=== PATIENT | female | born 1955 | race Caucasian/White ===

== ENCOUNTER → 2019-01-23 10:03 | Outpatient (CLI) | payer OTHER, MEDICARE, SELFPAY ==
[2019-01-23 10:51] LABS: Source, Body Fld. Peritoneal Fluid
[2019-01-23 10:52] LABS: Appearance,Body Fld. Cloudy
[2019-01-23 10:53] LABS: RBC,Body Fluid 11 cells/uL (< 10 X 10^3); TNC,Body Fluid 519 cells/uL (< 1000); Volume,Body Fld. 53 mL
[2019-01-23 11:36] LABS: Mononuclear WBCs,Body Fluid 87 %; Polynuclear WBC,Body Fluid 13 %
== END ==
PROVIDERS: Visit Provider Emergency Medicine
DX: K70.31 Alcoholic cirrhosis of liver with ascites (principal)
CPT/HCPCS: 87070; 87205; 89051

== ENCOUNTER 2019-02-22 00:37 | Inpatient (IN) ==
[2019-02-22 01:29] LABS: Basophils % 0.2 % (0.1-2.0); Eosinophils # 0.1 K/mm3 (0.0-0.4); Eosinophils % 0.6 % (0.1-12.0); Hemoglobin 8.4 g/dL (12.2-16.2); Lymphocytes # 0.8 K/mm3 (0.7-4.5); Lymphocytes % 4.9 % (10-50); Mean Corpuscular Volume 86.5 fl (81-99); Mean Platelet Volume 9.2 fl (7.4-10.4); Monocytes # 0.6 K/mm3 (0.1-1.0); Monocytes % 3.8 % (1.7-9.3); Neutrophils # 14.2 K/mm3 (1.8-7.8); Neutrophils % 90.5 % (37.0-80.0); Platelet Count 235 K/mm3 (142-424); Red Blood Count 3.05 M/mm3 (4.20-5.40); Red Cell Distribution Width 19.7 % (11.5-17.5); White Blood Count 15.7 K/mm3 (4.8-10.8)
[2019-02-22 01:30] LABS: Microscopic, Urine URINE MICROSCOPIC (MICROSCOPIC)
[2019-02-22 01:31] LABS: Appearance,Urine SL CLOUDY (Clear); Bilirubin,Urine Negative (Negative); Blood, Urine Negative (Negative); Color,Urine DK YELLOW (Yellow); Glucose,Urine (UA) Negative (Negative); Ketones,Urine Negative (Negative); Leukocyte Esterase,Urine TRACE (Negative); PH,Urine 6.5 (5.0-8.5); Protein,Urine Negative (Negative); Urobilinogen,Urine 0.2 EU/dl (0.2)
[2019-02-22 01:32] LABS: Hematocrit 26.4 % (37.0-47.0)
[2019-02-22 01:39] LABS: Amorphous Sediment,Urine 2+ /lpf; Mucus,Urine 4+ /lpf
[2019-02-22 01:49] LABS: Alanine Aminotransferase 16 U/L (12-78); Albumin Level 2.2 gm/dL (3.4-5.0); Albumin/Globulin Ratio 0.4 (1.1-1.8); Alkaline Phosphatase 87 U/L (46-116); Amylase 30 U/L (25-115); Bilirubin,Total 2.5 mg/dL (0.2-1.0); Carbon Dioxide 33 mmol/L (21.0-32.0); Total Protein,Serum 7.2 gm/dL (6.4-8.2)
[2019-02-22 01:50] LABS: Anisocytosis 2+; Lymphocytes % 4 % (10-50); Monocytes % 5 % (2-9); Neutrophils % 79 % (42-76); Total Cells Counted 100
[2019-02-22 01:51] LABS: Rouleaux 3+
[2019-02-22 02:12] LABS: Anion Gap 10.5 mEq/L (5-15); Aspartate Amino Transferase 55 U/L (15-37); Calcium 7.7 mg/dL (8.5-10.1); Chloride 93 mmol/L (98-107); Glucose 98 mg/dL (74-106); Sodium 133 mmol/L (136-145)
[2019-02-22 02:15] LABS: Blood Urea Nitrogen 94 mg/dL (7-18); C-Reactive Protein 21.3 mg/dL (0.0-0.9)
--- NOTE | 2019-02-22 03:17 | Emergency Department Note ---
ED Disposition Clinical Impression: Severe sepsis, Septic shock, Elevated erythrocyte sedimentation rate, Hepatic encephalopathy, RBBB (right bundle branch block with left anterior fascicular block), Renal insufficiency, Hypokalemia Altered mental status Qualifiers: Altered mental status type: unspecified Qualified Code(s): R41.82 - Altered mental status, unspecified Cirrhosis Qualifiers: Hepatic cirrhosis type: unspecified hepatic cirrhosis Ascites presence: without ascites Qualified Code(s): K74.60 - Unspecified cirrhosis of liver Anemia Qualifiers: Anemia type: unspecified type Qualified Code(s): D64.9 - Anemia, unspecified Disposition: Admitted As Inpatient Condition on Discharge: Serious - Critical Care Critical Care Time: Yes Attestation: On 02/22/19, the high probability of a clinically significant, sudden or life threatening deterioration of the following system(s) required my full and direct attention, intervention and personal management. The time I documented below is in addition to time spent performing reported procedures but includes the follo wing listed in this critical care notation. Total Critical Care Time: 90 Vital system(s) involved:: Metabolic Failure, Renal Failure My critical care processes included: Assessment & monitoring of V/S, Initial and Re-exams, Coordinating Care, Medication Orders and management, Documentation Medical Decision Making - Medical Records Medical records reviewed: Yes: I reviewed the patient's medical records. - Bryant Inquiry Pt receiving controlled substance: No Vital Signs: 02/22/19 00:39 02/22/19 00:48 02/22/19 01:07 Temperature 99.8 F H Temperature Source Rectal Pulse Rate [Right Brachial] 108 H 104 H 102 H Respiratory Rate 12 14 13 Blood Pressure [Right Arm] 91/47 L 89/42 L 91/42 L Blood Pressure Mean [Right Arm] 61 57 58 Blood Pressure Source [Right Arm] Automatic Cuff Blood Pressure Position [Right Arm] Supine 02 Sat by Pulse Oximetry 93 L 93 L 93 L Oxygen Delivery Method Room Air Room Air Oxygen Flow Rate (LPM) 02/22/19 01:44 02/22/19 01:59 02/22/19 02:30 Temperature Temperature Source Pulse Rate [Right Brachial] 107 H 104 H 115 H Respiratory Rate 13 13 13 Blood Pressure [Right Arm] 79/45 L 85/45 L 83/37 L Blood Pressure Mean [Right Arm] 56 58 52 Blood Pressure Source [Right Arm] Blood Pressure Position [Right Arm] 02 Sat by Pulse Oximetry 93 L 91 L 93 L Oxygen Delivery Method Room Air Room Air Room Air Oxygen Flow Rate (LPM) 02/22/19 03:00 02/22/19 03:30 02/22/19 03:55 Temperature 98.5 F Temperature Source Rectal Pulse Rate [Right Brachial] 101 H 103 H 104 H Respiratory Rate 13 15 14 Blood Pressure [Right Arm] 91/44 L 80/47 L 129/64 Blood Pressure Mean [Right Arm] 59 58 85 Blood Pressure Source [Right Arm] Blood Pressure Position [Right Arm] 02 Sat by Pulse Oximetry 95 95 95 Oxygen Delivery Method Room Air Room Air Room Air Oxygen Flow Rate (LPM) 02/22/19 04:18 02/22/19 04:30 02/22/19 05:00 Temperature 98.5 F Temperature Source Rectal Pulse Rate [Right Brachial] 102 H 101 H 109 H Respiratory Rate 15 15 15 Blood Pressure [Right Arm] 106/62 L 94/54 L 97/53 L Blood Pressure Mean [Right Arm] 76 67 67 Blood Pressure Source [Right Arm] Manual Cuff/ Auscultation Blood Pressure Position [Right Arm] Supine 02 Sat by Pulse Oximetry 95 92 L 93 L Oxygen Delivery Method Room Air Room Air Nasal Cannula Oxygen Flow Rate (LPM) 02/22/19 05:30 Temperature Temperature Source Pulse Rate [Right Brachial] 101 H Respiratory Rate 15 Blood Pressure [Right Arm] 89/58 L Blood Pressure Mean [Right Arm] 68 Blood Pressure Source [Right Arm] Automatic Cuff Blood Pressure Position [Right Arm] Supine 02 Sat by Pulse Oximetry 99 Oxygen Delivery Method Nasal Cannula Oxygen Flow Rate (LPM) 2 - Lab Data Lab results reviewed: Yes: I reviewed the patient's lab results. Lab Results 02/22/19 00:46: Urine Color Dk yellow, Urine Appearance Sl cloudy, Urine pH 6.5, Ur Specific [place] 1.010, Urine Protein Negative, Urine Glucose (UA) Negative, Urine Ketones Negative, Urine Blood Negative, Urine Nitrate Negative, Urine Stuart irubin Negative, Urine Urobilinogen 0.2, Ur Leukocyte Esterase Trace, Urine WBC 3-5, Amorphous Sediment 2+, Urine Mucus 4+ 02/22/19 00:54: POC Glucose 114 H 02/22/19 01:15: WBC 15.7 H, RBC 3.05 L, Hgb 8.4 L, Hct 26.4 L, MCV 86.5, MCH 27.7, MCHC 32.0, RDW 19.7 H, Plt Count 235, MPV 9.2, Neut % (Auto) 90.5 H, Lymph % (Auto) 4.9 L, [place] % (Auto) 3.8, Eos % (Auto) 0.6, Baso % (Auto) 0.2, Neut # (Auto) 14.2 H, Lymph # (Auto) 0.8, [place] # (Auto) 0.6, Eos # (Auto) 0.1, Baso # (Auto) 0.0, Total Counted 100, Neutrophils % (Manual) 79 H, Band Neutrophils % 12.0 H, Lymphocytes % (Manual) 4 L, Monocytes % (Manual) 5, Platelet Estimate Normal, RBC Morphology Not Reportable, Poikilocytosis 2+, Anisocytosis 2+, Rouleaux 3+ 02/22/19 01:15: ESR 94 H 02/22/19 01:15: Lactate 2.0 02/22/19 01:53: Sodium 133 L, Potassium 3.5, Chloride 93 L, Carbon Dioxide 33 H, Anion Gap 10.5, BUN 94 H, Creatinine 2.55 H, Estimated Creat Clear 20, Estimated GFR 19 L*, Est GFR ( Amer) 23 L, Glucose 98, Calcium 7.7 L, Total Bilirubin 2.5 H, AST 55 H, ALT 16, Alkaline Phosphatase 87, Troponin I < 0.02, C-Reactive Protein 21.3 H, Total Protein 7.2, Albumin 2.2 L, Globulin 5.0 H, A lbumin/Globulin Ratio 0.4 L, Amylase 30, Lipase 82 02/22/19 01:53: Stool Occult Blood Positive A 02/22/19 03:35: PT 13.9 H, INR 1.36 H 02/22/19 03:35: Ammonia 87 H 02/22/19 03:35: Magnesium 2.0 02/22/19 03:35: Sodium 135 L, Potassium 2.8 L*, Chloride 95 L, Carbon Dioxide 29, Anion Gap 13.8, BUN 89 H, Creatinine 2.58 H, Estimated Creat Clear 19, Estimated GFR 19 L*, Est GFR ( Amer) 23 L, Glucose 95, Calcium 7.2 L 02/22/19 05:25: Lactate 1.2 Result diagrams: 02/22/19 01:15 02/22/19 03:35 Orders (Tests/Meds): ED MEDICATIONS Generic Name Dose Route Start Last Admin Trade Name Pankaj PRN Reason Stop Dose Admin Sodium Chloride 1,000 mls @ 999 mls/hr 02/22/19 01:00 02/22/19 04:59 Sod Chlor 0.9% 1000ml Bag IV 02/22/19 02:00 999 mls/hr .Q1H1M JAZMYNE Administration Ceftriaxone Sodium 1 gm/ 50 mls @ 100 mls/hr 02/22/19 02:50 02/22/19 02:50 Sodium Chloride IV 03/08/19 02:49 100 mls/hr Q24H JAZMYNE Administration Protocol Sodium Chloride 500 mls @ 999 mls/hr 02/22/19 04:30 02/22/19 04:34 Sod Chlor 0.9% 1000ml Bag IV 02/22/19 05:00 Not Given .Q31M JAZMYNE Ertapenem 0.5 gm/ Sodium 50 mls @ 100 mls/hr 02/22/19 04:45 02/22/19 04:52 Chloride IV 03/08/19 04:44 100 mls/hr Q24H JAZMYNE Administration Protocol Sodium Chloride 1,000 mls @ 999 mls/hr 02/22/19 05:00 Sod Chlor 0.9% 1000ml Bag IV 02/22/19 06:00 .Q1H1M JAZMYNE Discontinued Medications Generic Name Dose Route Start Last Admin Trade Name Pankaj PRN Reason Stop Dose Admin Sodium Chloride 1,630 mls @ 815 mls/hr 02/22/19 02:17 02/22/19 01:51 Sod Chlor 0.9% 1000ml Bag 30 ml/kg infuse over 2 hr (1630 ml) 02/22/19 04:16 815 mls/hr IV Administration .Q2H ONE Metronidazole 500 mg in 100 mls @ 100 mls/hr 02/22/19 04:55 02/22/19 05:26 Flagyl 500mg/100ml Ivpb IV 02/22/19 05:54 100 mls/hr ONCE ONE Administration Protocol Lactulose 20 gm 02/22/19 04:58 02/22/19 05:26 Chronulac 20gm/30ml Udc RC 02/22/19 04:59 20 gm ONCE ONE Administration ORDERS Category Date Time Status CT abdomen pelvis wo con Stat Cat Scan 02/22/19 00:[address] head/brain wo con Stat Cat Scan 02/22/19 00:48 Taken XR chest portable Stat Exams 02/22/19 00:45 Taken Urinalysis and Microscopic Stat Lab 02/22/19 00:46 Ordered Blood Culture Stat Micro 02/22/19 00:46 Ordered ECG Request by /Saul Stat Y 02/22/19 00:45 Ordered - Radiology Data #1 Image(s): Chest Image Reviewed: Yes I reviewed the patient's radiology image Preliminary Findings: Abnormal (possible inflitrate ) - CT Data CT Scan: Head, Abdomen, Pelvis Time Received: 04:[address] Reviewed: Yes: I have viewed the radiologist's interpretation Preliminary Findings: Abnormal (see report ) - ECG Data Tracing #1 Arrhythmias present: other Conduction abnormalities present: LAFB, RBBB - Tissue Perfus/Sepsis Re-Eval Reperfusion Exam Performed: Yes Date Performed: 02/22/19 Time Performed: 03:17 Sepsis Follow-Up: Yes: Respiratory exam, Cardiovascular exam, Capillary refill, Peripheral pulse strength, Peripheral pulse location, Vital Signs Altered Mental Status HPI - General Chief Complaint: Altered Mental Status Stated Complaint: ams Time Seen by Provider: 02/22/19 00:50 Mode of Arrival: EMS Source of Information: Patient, Relative, EMS, Medical Record Limitations: confused; unable to answer questions appropriately Description of Symptoms (Recalled from ER Triage Doc. by RN): Pt sent from group home for reports of foul smelling stool that "looked bloody". EMS reported that patient was vague about complaints, stated that she hurt all over. On arrival, pt does not answer quesitons appropriately. Responds to her first name, but states she doesn't know her name. Pt appears very drowsy. - History of Present Illness HPI narrative: pt sent from [facility] with hx of altered mental status - had bloody stool- hx of hospice care - has liver disease with hep c - has hx of endocarditis with prosthetic heart valve , cirrhosis, copd - pt was last admitted in september at [facility] - she has been at [facility] for a couple of months - she has vacillated between dnr and full code- MD complaint: altered mental status Onset (ago): hour(s) Timing confirmed by: family member, caregiver Severity: severe Consistency of symptoms: waxing and waning Associated symptoms: denies other symptoms - Related Data Home Medications Medication Instructions Recorded Confirmed Acetaminophen 500 mg PO Q6H PRN 02/22/19 02/22/19 Baclofen [Lioresal 10mg tablet] 10 mg PO BID 02/22/19 02/22/19 Bumetanide 2 mg PO BID 02/22/19 02/22/19 Chlorthalidone 50 mg PO DAILY 02/22/19 02/22/19 Ipratropium/Albuterol Sulfate 3 ml IH Q6H 02/22/19 02/22/19 [Iprat-Albut 0.5-3(2.5) mg/3 ml] Lactulose [Lactulose 10gm/15ml 10 gm PO DAILY 02/22/19 02/22/19 Oral Soln] Magnesium Oxide 400 mg PO DAILY 02/22/19 02/22/19 Mirtazapine [Remeron 15mg tablet] 15 mg PO HS 02/22/19 02/22/19 Morphine Sulfate [MS Contin 30mg 30 mg PO HS 02/22/19 02/22/19 EXTENDED RELEASE tablet] Morphine Sulfate [Roxanol 20mg/mL 5 mg PO Q3H PRN 02/22/19 02/22/19 1mL oral soln UDC] Nitroglycerin [Nitrostat 0.4mg SL 0.4 mg SL Q15M 02/22/19 02/22/19 Tablet] Potassium Chloride 40 meq PO DAILY 02/22/19 02/22/19 Promethazine HCl [Phenergan 25mg 25 mg PO Q6H PRN 02/22/19 02/22/19 tab] guaiFENesin [Robafen] 10 ml PO Q8H 02/22/19 02/22/19 Allergies Allergy/AdvReac Type Severity Reaction Status Date / Time No Known Allergies Allergy Unverified 01/13/19 15:12 [facility] History - Hepatitis A Screen Drug use history?: Yes High risk sexual behaviors?: No History of sexually transmitted infection?: No Currently employed?: No Childcare worker?: No Do you have indoor plumbing?: Yes Do you have electricity?: Yes Attestation statement:: This patient has been screened for Hepatitis A risk factors. I have reviewed the patient's past medical history: Yes Medical History: Denies:: Diabetes Mellitus Type 1, Diabetes Mellitus Type 2 - Social History Smoking Status: Former smoker # Packs/Day (cigarettes): 0 Alcohol Intake: former Substance Use Type: unknown Occupational Status: disabled Housing: group home ROS Obtained: Yes unobtainable due to mental status Physical Exam - General General appearance: in no apparent distress, cachectic - Head Head exam: normocephalic - Eye Eye exam: Present: PERRL, EOMI - ENT ENT exam: Present: mucous membranes dry - Neck Neck exam: Present: trachea midline - Respiratory Respiratory exam: Present: other (dec bs ). Absent: respiratory distress - Cardiovascular Cardiovascular exam: Present: regular rate, systolic murmur, +S4 - Abdominal Exam Abdominal exam: Present: soft, tenderness - Extremities Exam Extremities exam: Present: other (bilat swelling ) - Neurological Exam Neurological exam: Present: other (confused w/o posturing ) - Skin Skin exam: Absent: rash
[2019-02-22 03:51] LABS: INR 1.36 (0.9-1.1); Prothrombin Time 13.9 seconds (9.4-11.8)
[2019-02-22 05:14] LABS: Anion Gap 13.8 mEq/L (5-15); Calcium 7.2 mg/dL (8.5-10.1)
--- NOTE | 2019-02-22 08:22 | History & Physical Report ---
*Admission Date: 02/22/19 *Chief complaint: altered mental staus *History of present illness: this wf was sent from [facility] with altered mental status -pt has sig hx of cirrhosis and hep c and she has renal failure - no reported fever but did have sepsis criteria with organ dysfunction - [facility] of foul smelling stool that "looked bloody". EMS reported that patient was vague about complaints, stated that she hurt all over. On arrival, pt does not answer quesitons appropriately. Responds to her first name, but states she doesn't know her name. pt sent from [facility] with hx of altered mental status - had bloody stool- hx of hospice care - has liver disease with hep c - has hx of endocarditis with prosthetic heart valve , cirrhosis, copd - pt was last admitted in september at [facility] - she has been at [facility] for a couple of months - she has vacillated between dnr and full code- pt was admitted for ivf and abx - she is a hospice pt [facility] History I have reviewed the patient's past medical history: Yes Medical History: Reports:: Congestive Heart Failure, Hypertension Denies:: Diabetes Mellitus Type 1, Diabetes Mellitus Type 2 *Have you ever received a pneumonia vaccine?: Yes *Have you received a flu vaccine this season?: Yes Other Surgeries: Yes: Other Valve Replacement - *Social History Smoking Status: Former smoker # Packs/Day (cigarettes): 0 Alcohol Intake: former Substance Use Type: unknown *Occupational Status:: disabled Housing: prison *Travel in the last 8 weeks: None Family Hx:: Unable to obtain Review of Systems - Review of Systems Review of systems:: pertinent systems reviewed and negative unless documented below - Constitutional Denies fever(s) - Eyes Denies change in vision - ENT Denies neck pain, Denies sore throat - *Cardiovascular Denies chest pain at rest - *Respiratory Denies cough - *Gastrointestinal Reports abdominal pain, Reports other (brown stool with positive hemocult ) - *Genitourinary Denies blood in urine - *Musculoskeletal Reports back pain, Denies joint pain - Integumentary/Breasts Reports other (has skin changes to sacrum ) - *Neurologic Denies headache(s), Denies seizure-like activity - Psychiatric Reports confusion Meds Home Medications Medication Instructions Recorded Confirmed Type Acetaminophen 500 mg PO Q6H PRN 02/22/19 02/22/19 History Baclofen [Lioresal 10mg tablet] 10 mg PO BID 02/22/19 02/22/19 History Bumetanide 2 mg PO BID 02/22/19 02/22/19 History Chlorthalidone 50 mg PO DAILY 02/22/19 02/22/19 History Ipratropium/Albuterol Sulfate 3 ml IH Q6H 02/22/19 02/22/19 History [Iprat-Albut 0.5-3(2.5) mg/3 ml] Lactulose [Lactulose 10gm/15ml 10 gm PO DAILY 02/22/19 02/22/19 History Oral Soln] Magnesium Oxide 400 mg PO DAILY 02/22/19 02/22/19 History Mirtazapine [Remeron 15mg tablet] 15 mg PO HS 02/22/19 02/22/19 History Morphine Sulfate [MS Contin 30mg 30 mg PO HS 02/22/19 02/22/19 History EXTENDED RELEASE tablet] Morphine Sulfate [Roxanol 20mg/mL 5 mg PO Q3H PRN 02/22/19 02/22/19 History 1mL oral soln UDC] Nitroglycerin [Nitrostat 0.4mg SL 0.4 mg SL Q15M 02/22/19 02/22/19 History Tablet] Potassium Chloride 40 meq PO DAILY 02/22/19 02/22/19 History Promethazine HCl [Phenergan 25mg 25 mg PO Q6H PRN 02/22/19 02/22/19 History tab] guaiFENesin [Robafen] 10 ml PO Q8H 02/22/19 02/22/19 History Allergies Allergy/AdvReac Type Severity Reaction Status Date / Time No Known Allergies Allergy Unverified 01/13/19 15:12 Exam Vital signs and Labs for Last 24 Hours: Temp Pulse Resp BP Pulse Ox 99.1 F 99 H 24 96/52 L 91 L 02/22/19 07:09 02/22/19 07:09 02/22/19 07:09 02/22/19 07:39 02/22/19 07:09 Laboratory Results - last 24 hr 02/22/19 00:46: Urine Color Dk yellow, Urine Appearance Sl cloudy, Urine pH 6.5, Ur Specific [place] 1.010, Urine Protein Negative, Urine Glucose (UA) Negative, Urine Ketones Negative, Urine Blood Negative, Urine Nitrate Negative, Urine Bilirubin Negative, Urine Urobilinogen 0.2, Ur Leukocyte Esterase Trace, Urine WBC 3-5, Amorphous Sediment 2+, Urine Mucus 4+ 02/22/19 00:54: POC Glucose 114 H 02/22/19 01:15: WBC 15.7 H, RBC 3.05 L, Hgb 8.4 L, Hct 26.4 L, MCV 86.5, MCH 27.7, MCHC 32.0, RDW 19.7 H, Plt Count 235, MPV 9.2, Neut % (Auto) 90.5 H, Lymph % (Auto) 4.9 L, [place] % (Auto) 3.8, Eos % (Auto) 0.6, Baso % (Auto) 0.2, Neut # (Auto) 14.2 H, Lymph # (Auto) 0.8, [place] # (Auto) 0.6, Eos # (Auto) 0.1, Baso # (Auto) 0.0, Total Counted 100, Neutrophils % (Manual) 79 H, Band Neutrophils % 12.0 H, Lymphocytes % (Manual) 4 L, Monocytes % (Manual) 5, Platelet Estimate Normal, RBC Morphology Not Reportable, Poikilocytosis 2+, Anisocytosis 2+, Rouleaux 3+ 02/22/19 01:15: ESR 94 H 02/22/19 01:15: Lactate 2.0 02/22/19 01:53: Sodium 133 L, Potassium 3.5, Chloride 93 L, Carbon Dioxide 33 H, Anion Gap 10.5, BUN 94 H, Creatinine 2.55 H, Estimated Creat Clear 20, Estimated GFR 19 L*, Est GFR ( Amer) 23 L, Glucose 98, Calcium 7.7 L, Total Bilirubin 2.5 H, AST 55 H, ALT 16, Alkaline Phosphatase 87, Troponin I < 0.02, C-Reactive Protein 21.3 H, Total Protein 7.2, Albumin 2.2 L, Globulin 5.0 H, Albumin/Globulin Ratio 0.4 L, Amylase 30, Lipase 82 02/22/19 01:53: Stool Occult Blood Positive A 02/22/19 03:35: PT 13.9 H, INR 1.36 H 02/22/19 03:35: Ammonia 87 H 11/10/19 03:35: Magnesium 2.0 02/22/19 03:35: Sodium 135 L, Potassium 2.8 L*, Chloride 95 L, Carbon Dioxide 29, Anion Gap 13.8, BUN 89 H, Creatinine 2.58 H, Estimated Creat Clear 19, Estimated GFR 19 L*, Est GFR ( Amer) 23 L, Glucose 95, Calcium 7.2 L 02/22/19 05:25: Lactate 1.2 I & O for Last 24 hours: Intake & Output 02/19/19 02/20/19 02/21/19 02/22/19 11:59 11:59 11:59 11:59 Intake Total 3450 / 3450 Output Total 1800 / 1800 Balance 1650 / 1650 Weight 131 lb 1 oz - Constitutional no acute distress, chronically ill appearing - *Routine HEENT Exam Head: Present: normocephalic Eye: Present: EOMI, PERRL, conjunctival icterus ENT: Present: mucous membranes dry - *Routine Neck Exam Absent: JVD, meningismus - *Routine Respiratory Exam Present: decreased breath sounds - *Routine Cardiovascular Exam Present: RRR, murmur, S4. Absent: rubs - *Routine Abdominal Exam Present: soft, tenderness. Absent: distended, rebound, guarding, firm - *Routine Extremities Exam Present: edema - *Routine Skin Exam Absent: petechiae - *Routine Neurological Exam Present: alert, CN II-XII intact. Absent: asterixis - Routine Psychiatric Exam Present: unable to assess Assessment and Plan (1) Altered mental status Current visit: Yes Status: Acute Qualifiers: Altered mental status type: delirium Qualified Code(s): R41.0 - Disorientation, unspecified Category: Medical Code(s): R41.82 - Altered mental status, unspecified (2) Anemia Current visit: Yes Status: Acute Qualifiers: Anemia type: unspecified type Qualified Code(s): D64.9 - Anemia, unspecified Category: Medical Code(s): D64.9 - Anemia, unspecified (3) Cirrhosis Current visit: Yes Status: Acute Qualifiers: Hepatic cirrhosis type: unspecified hepatic cirrhosis Ascites presence: without ascites Qualified Code(s): K74.60 - Unspecified cirrhosis of liver Category: Medical Code(s): K74.60 - Unspecified cirrhosis of liver (4) Elevated erythrocyte sedimentation rate Current visit: Yes Status: Acute Category: Medical Code(s): R70.0 - Elevated erythrocyte sedimentation rate (5) Hepatic encephalopathy Current visit: Yes Status: Acute Category: Medical Code(s): K72.90 - Hepatic failure, unspecified without coma (6) Hypokalemia Current visit: Yes Status: Acute Category: Medical Code(s): E87.6 - Hypokalemia (7) RBBB (right bundle branch block with left anterior fascicular block) Current visit: Yes Status: Acute Category: Medical Code(s): I45.2 - Bifa scicular block (8) Renal insufficiency Current visit: Yes Status: Acute Category: Medical Code(s): N28.9 - Disorder of kidney and ureter, unspecified (9) Septic shock Current visit: Yes Status: Acute Category: Medical Code(s): A41.9 - Sepsis, unspecified organism; R65.21 - Severe sepsis with septic shock (10) Severe sepsis Current visit: Yes Status: Acute Category: Medical Code(s): A41.9 - Sepsis, unspecified organism; R65.20 - Severe sepsis without septic shock
--- NOTE | 2019-02-22 08:35 | Pharmacy Consult Notes ---
[facility] Pharmacy VTE Monitoring - Patient Demographics Admission date: 02/22/19 Report Date: 02/22/19 Time: 08:35 Allergies/Adverse Reactions: Patient Allergies No Known Allergies Allergy (Unverified 01/13/19 15:12) Height: 1.6 m Weight: 59.449 kg Patient Problems: Current Active Problems Altered mental status (Acute) Severe sepsis (Acute) Septic shock (Acute) Elevated erythrocyte sedimentation rate (Acute) Hepatic encephalopathy (Acute) RBBB (right bundle branch block with left anterior fascicular block) (Acute) Cirrhosis (Acute) Anemia (Acute) Renal insufficiency (Acute) Hypokalemia (Acute) - VTE Risk Labs: VTE Related Lab Results Hgb 8.4 g/dL (12.2-16.2) L 02/22/19 01:15 Hct 26.4 % (37.0-47.0) L 02/22/19 01:15 Plt Count 235 K/mm3 (142-424) 02/22/19 01:15 PT 13.9 seconds (9.4-11.8) H 02/22/19 03:35 INR 1.36 (0.9-1.1) H 02/22/19 03:35 BUN 89 mg/dL (7-18) H 02/22/19 03:35 Creatinine 2.58 mg/dL (0.55-1.02) H 02/22/19 03:35 Estimated Creat Clear 19 mL/min (50-200) 02/22/19 03:35 Was VTE Risk Assessment Performed: Yes VTE Score: 4 VTE Risk Level: Low Risk - Prophylaxis VTE Prophylaxis Ordered?: Yes Types of VTE Prophylaxis: Pharmacological Pharmacologic Type: Enoxaparin
[2019-02-22 13:24] LABS: Anion Gap 9.5 mEq/L (5-15); Calcium 7.7 mg/dL (8.5-10.1)
--- NOTE | 2019-02-22 20:39 | Electrocardiograph Report ---
APPROVED REPORT Exam: Resting ECG HR:97 bpm ECG Measurements Heart Rate 97 AXES WI 168 P QRSd 160 QRS 131 QT 430 T42 QTc 546 <Conclusion> Normal sinus rhythm Right bundle branch block Abnormal ECG Electronically signed by : Tee Ibanez, 02/22/2019 20:39:07
--- NOTE | 2019-02-22 20:47 | Electrocardiograph Report ---
APPROVED REPORT Exam: Resting ECG HR:105 bpm ECG Measurements Heart Rate 105 AXES QRSd 162 QRS 133 QT 424 T29 QTc 560 <Conclusion> Wide QRS rhythm with occasional premature ventricular complexes Right bundle branch block, plus right ventricular hypertrophy Abnormal ECG Electronically signed by : Tee Ibanez, 02/22/2019 20:46:37
[2019-02-23 06:38] LABS: Eosinophils # 0.1 K/mm3 (0.0-0.4); Eosinophils % 1.2 % (0.1-12.0); Hematocrit 27.3 % (37.0-47.0); Hemoglobin 8.4 g/dL (12.2-16.2); Lymphocytes # 0.7 K/mm3 (0.7-4.5); Mean Corpuscular HGB Conc 30.8 g/dL (31.8-35.4); Mean Corpuscular Volume 88.3 fl (81-99); Mean Platelet Volume 8.3 fl (7.4-10.4); Monocytes # 0.6 K/mm3 (0.1-1.0); Monocytes % 5.9 % (1.7-9.3); Neutrophils # 8.9 K/mm3 (1.8-7.8); Neutrophils % 85.9 % (37.0-80.0); Platelet Count 194 K/mm3 (142-424); Red Blood Count 3.09 M/mm3 (4.20-5.40); Red Cell Distribution Width 19.8 % (11.5-17.5); White Blood Count 10.3 K/mm3 (4.8-10.8)
[2019-02-23 06:40] LABS: Anion Gap 10.5 mEq/L (5-15); Calcium 7.7 mg/dL (8.5-10.1)
[2019-02-23 07:28] LABS: Lymphocytes % 6 % (10-50); Monocytes % 4 % (2-9); Neutrophils % 90 % (42-76); Total Cells Counted 100
[2019-02-23 07:29] LABS: Anisocytosis 2+
--- NOTE | 2019-02-23 13:30 | Progress Note ---
Internal Medicine - PN: Subj *Date: 02/23/19 *Time: 13:27 Interval history: doing better - more alert has complaint about sacral decubitus Exam Vital signs and Labs for Last 24 Hours: Temp Pulse Resp BP Pulse Ox 98.2 F 105 H 18 84/44 L 100 02/23/19 08:00 02/23/19 08:00 02/23/19 08:00 02/23/19 08:00 02/23/19 08:00 Laboratory Results - last 24 hr 02/22/19 00:46: Urine Color Dk yellow, Urine Appearance Sl cloudy, Urine pH 6.5, Ur Specific [place] 1.010, Urine Protein Negative, Urine Glucose (UA) Negative, Urine Ketones Negative, Urine Blood Negative, Urine Nitrate Negative, Urine Bilirubin Negative, Urine Urobilinogen 0.2, Ur Leukocyte Esterase Trace, Urine WBC 3-5, Amorphous Sediment 2+, Urine Mucus 4+ 02/22/19 13:06: Sodium 137, Potassium 2.5 L*, Chloride 99, Carbon Dioxide 31, Anion Gap 9.5, BUN 93 H, Creatinine 2.21 H, Estimated Creat Clear 25, Estimated GFR 22 L, Est GFR ( Amer) 27 L, Glucose 113 H, Calcium 7.7 L 02/22/19 13:06: Ammonia 51 02/22/19 20:20: Potassium 2.8 L* 02/22/19 20:20: Ammonia 97 H 02/23/19 06:12: WBC 10.3 D, RBC 3.09 L, Hgb 8.4 L, Hct 27.3 L, MCV 88.3, MCH 27.2, MCHC 30.8 L, RDW 19.8 H, Plt Count 194, MPV 8.3, Neut % (Auto) 85.9 H, Lymph % (Auto) 7.0 L, [place] % (Auto) 5.9, Eos % (Auto) 1.2, Baso % (Auto) 0.0 L, Neut # (Auto) 8.9 H, Lymph # (Auto) 0.7, [place] # (Auto) 0.6, Eos # (Auto) 0.1, Baso # (Auto) 0.0, Total Counted 100, Neutrophils % (Manual) 90 H, Lymphocytes % (Manual) 6 L, Monocytes % (Manual) 4, Platelet Estimate Normal, Poikilocytosis 2+, Anisocytosis 2+, Acanthocytes (Spur) 2+, Schistocytes 1+ 02/23/19 06:12: Sodium 137, Potassium 2.5 L*, Chloride 101, Carbon Dioxide 28, Anion Gap 10.5, BUN 86 H, Creatinine 1.79 H, Estimated Creat Clear 31, Estimated GFR 29 L, Est GFR ( Amer) 35 L D, Glucose 81 D, Calcium 7.7 L I & O for Last 24 hours: Intake & Output 02/21/19 02/22/19 02/23/19 02/24/19 11:59 11:59 11:59 11:59 Intake Total 3450 / 3450 3507 / 3507 Output Total 2600 / 2600 900 / 900 Balance 850 / 850 2607 / 2607 Weight 131 lb 1 oz 133 lb 0.995 oz Microbiology Reports for the Last 24 Hours: Microbiology 02/22/19 00:46 Blood Blood Culture - Preliminary Gram Positive Bacilli 02/22/19 00:46 Blood Blood Culture - Preliminary - Constitutional no acute distress - *Routine HEENT Exam Head: Present: normocephalic Eye: Present: EOMI, PERRL ENT: Present: mucous membranes dry - *Routine Neck Exam Absent: JVD - *Routine Respiratory Exam Present: decreased breath sounds - *Routine Cardiovascular Exam Present: RRR - *Routine Abdominal Exam Comments: has drainage tube rt upper abd - *Routine Extremities Exam Absent: calf tenderness - *Routine Skin Exam Comments: stage 2 sacral decubitus - *Routine Neurological Exam Present: alert - Routine Psychiatric Exam Present: normal affect Assessment and Plan (1) Altered mental status Current visit: Yes Status: Acute Qualifiers: Altered mental status type: delirium Qualified Code(s): R41.0 - Disorientation, unspecified Category: Medical Code(s): R41.82 - Altered mental status, unspecified (2) Anemia Current visit: Yes Status: Acute Qualifiers: Anemia type: unspecified type Qualified Code(s): D64.9 - Anemia, unspecified Category: Medical Code(s): D64.9 - Anemia, unspecified (3) Cirrhosis Current visit: Yes Status: Acute Qualifiers: Hepatic cirrhosis type: unspecified hepatic cirrhosis Ascites presence: without ascites Qualified Code(s): K74.60 - Unspecified cirrhosis of liver Category: Medical Code(s): K74.60 - Unspecified cirrhosis of liver (4) Elevated erythrocyte sedimentation rate Current visit: Yes Status: Acute Category: Medical Code(s): R70.0 - Elevated erythrocyte sedimentation rate (5) Hepatic encephalopathy Current visit: Yes Status: Acute Category: Medical Code(s): K72.90 - Hepatic failure, unspecified without coma (6) Hypokalemia Current visit: Yes Status: Acute Category: Medical Code(s): E87.6 - Hypokalemia (7) RBBB (right bundle branch block with left anterior fascicular block) Current visit: Yes Status: Acute Category: Medical Code(s): I45.2 - Bifascicular block (8) Renal insufficiency Current visit: Yes Status: Acute Category: Medical Code(s): N28.9 - Disorder of kidney and ureter, unspecified (9) Septic shock Current visit: Yes Status: Acute Category: Medical Code(s): A41.9 - Sepsis, unspecified organism; R65.21 - Severe sepsis with septic shock (10) Severe sepsis Current visit: Yes Status: Acute Category: Medical Code(s): A41.9 - Sepsis, unspecified organism; R65.20 - Severe sepsis without septic shock (11) Sacral decubitus ulcer, stage II Current visit: Yes Status: Acute Category: Medical Code(s): L89.152 - Pressure ulcer of sacral region, stage 2 (12) Gram positive sepsis Current visit: Yes Status: Acute Category: Medical Code(s): A41.89 - Other specified sepsis (13) Gram positive septicemia Current visit: Yes Status: Acute Category: Medical Code(s): A41.89 - Other specified sepsis
--- NOTE | 2019-02-24 09:01 | Discharge Summary ---
General - General Admission date:: 02/22/19 Discharge date: 02/24/19 HPI HPI: this wf was sent from [facility] with altered mental status -pt has sig hx of cirrhosis and hep c and she has renal failure - no reported fever but did have sepsis criteria with organ dysfunction - sent from [facility] for reports of foul smelling stool that "looked bloody". EMS reported that patient was vague about complaints, stated that she hurt all over. On arrival, pt does not answer quesitons appropriately. Responds to her first name, but states she doesn't know her name. pt sent from [facility] with hx of altered mental status - had bloody stool- hx of hospice care - has liver disease with hep c - has hx of endocarditis with prosthetic heart valve , cirrhosis, copd - pt was last admitted in september at [facility] - she has been at [facility] for a couple of months - she has vacillated between dnr and full code- pt was admitted for ivf and abx - she is a hospice pt Hospital Course Hospital Course: ct head:IMPRESSION: No acute intracranial findings Chronic small vessel deep white-matter ischemic gliotic changes cerebral hemispheres. Mild cerebral atrophy age appropriate chest x ray:IMPRESSION: Prior CABG with cardiomegaly ct abd/pelvis:IMPRESSION: Probable rectal proctitis Generous stool distends the rectum with stranding and hazy appearance about thickened rectal wall Suspect developing cirrhosis of liver. Spleen normal size. Intra-abdominal catheter enters from RUQ.-possible peritoneal dialysis catheter. Correlation required Trace ascites and/abdominal fluid-possibly related to the above Other observations in text. Generous wall thickness of stomach-although may merely reflect lack of gastric distension. blood cx pos: corynebacterum striatum-levaquin 250 mg x 10 days continue hospice care. Objective Vital signs: Temp Pulse Resp BP Pulse Ox 98.8 F 97 H 17 88/55 L 92 L 02/24/19 07:44 02/24/19 07:44 02/24/19 07:44 02/24/19 07:44 02/24/19 07:44 chronically ill appearing - *Routine HEENT Exam Head: Present: normocephalic Eye: Present: PERRL ENT: Present: mucous membranes moist - *Routine Respiratory Exam Present: CTA bilaterally - *Routine Cardiovascular Exam Present: RRR - *Routine Abdominal Exam Present: soft, normoactive bowel sounds, drain Comments: port under skin abd distended does dialysis - *Routine Extremities Exam Present: full ROM - *Routine Skin Exam Present: intact, pallor - *Routine Neurological Exam Present: alert - Routine Psychiatric Exam Present: normal affect Results Labs on day of discharge: Preliminary micro results at discharge 02/22/19 00:46 Blood Culture - Preliminary Blood Corynebacterium striatum 02/22/19 00:46 Blood Culture - Preliminary Blood - Additional Comments rounded with marcelle all orders per marcelle DS: Diagnosis - Discharge Diagnosis (1) Altered mental status Status: Acute (2) Anemia Status: Acute (3) Cirrhosis Status: Acute (4) Elevated erythrocyte sedimentation rate Status: Acute (5) Hepatic encephalopathy Status: Acute (6) Hypokalemia Status: Acute (7) RBBB (right bundle branch block with left anterior fascicular block) Status: Acute (8) Renal insufficiency Status: Acute (9) Septic shock Status: Acute (10) Severe sepsis Status: Acute (11) Sacral decubitus ulcer, stage II Status: Acute (12) Gram positive sepsis Status: Acute (13) Gram positive septicemia Status: Acute Discharge Plan - Patient Discharge Instructions ACTIVITY: Continue current activity DIET: continue same diet Patient Instructions: Sepsis, DI for Hypokalemia, DI for Sepsis -- Adult, DI for Altered Mental Status, Hypokalemia - Follow up Plan Disposition: [facility] Home Medications: Home Medications Medication Instructions Recorded Confirmed Type Acetaminophen 500 mg PO Q6H PRN 02/22/19 02/22/19 History Baclofen [Lioresal 10mg tablet] 10 mg PO TID 02/22/19 02/22/19 History Bumetanide 4 mg PO BID 02/22/19 02/22/19 History Chlorthalidone 50 mg PO DAILY 02/22/19 02/22/19 History Ipratropium/Albuterol Sulfate 3 ml IH Q6H PRN 02/22/19 02/22/19 History [Iprat-Albut 0.5-3(2.5) mg/3 ml] Lactulose [Lactulose 10gm/15ml 20 gm PO BID 02/22/19 02/22/19 History Oral Soln] Lactulose [Lactulose 10gm/15ml 20 gm PO Q4H PRN 02/22/19 02/22/19 History Oral Soln] Magnesium Oxide 400 mg PO DAILY 02/22/19 02/22/19 History Mirtazapine [Remeron 15mg tablet] 15 mg PO HS 02/22/19 02/22/19 History Morphine Sulfate [MS Contin 30mg 30 mg PO HS 02/22/19 02/22/19 History EXTENDED RELEASE tablet] Morphine Sulfate [Roxanol 20mg/mL 5 mg PO Q3H PRN 02/22/19 02/22/19 History 1mL oral soln UDC] Nitroglycerin [Nitrostat 0.4mg SL 0.4 mg SL Q5M PRN 02/22/19 02/22/19 History Tablet] Ondansetron HCl [Ondansetron 4mg 4 mg PO TIDP PRN 02/22/19 02/22/19 History Tablet] Pantoprazole Sodium [Protonix 40mg 40 mg PO DAILY 02/22/19 02/22/19 History tablet] Potassium Chloride 40 meq PO DAILY 02/22/19 02/22/19 History Promethazine HCl [Phenergan 25mg 25 mg PO Q6H PRN 02/22/19 02/22/19 History tab] Pseudoephedrine HCl [Sudogest] 30 mg PO Q6HP PRN 02/22/19 02/22/19 History Sennosides [Senna Lax] 17.2 mg PO BID 02/22/19 02/22/19 History cefUROXime axetil [Ceftin 500mg 500 mg PO BID 02/22/19 02/22/19 History Tab (GEQ)] guaiFENesin [Robafen] 10 ml PO Q6HP PRN 02/22/19 02/22/19 History levoFLOXacin [Levaquin 250mg 250 mg PO DAILY 9 Days #9 tab 02/24/19 Rx tab] Prescriptions/Medication Reconciliation: New levoFLOXacin [Levaquin 250mg tab] 250 mg PO DAILY 9 Days #9 tab Continued Mirtazapine [Remeron 15mg tablet] 15 mg PO HS Chlorthalidone 50 mg PO DAILY Potassium Chloride 40 meq PO DAILY Nitroglycerin [Nitrostat 0.4mg SL Tablet] 0.4 mg SL Q5M PRN PRN Reason: Chest Pain Lactulose [Lactulose 10gm/15ml Oral Soln] 20 gm PO Q4H PRN PRN Reason: BOWEL MOVEMENT Ipratropium/Albuterol Sulfate [Iprat-Albut 0.5-3(2.5) mg/3 ml] 3 ml IH Q6H PRN PRN Reason: SOA/WHEEZING Baclofen [Lioresal 10mg tablet] 10 mg PO TID Acetaminophen 500 mg PO Q6H PRN PRN Reason: PAIN/ELEVATED TEMP Bumetanide 4 mg PO BID guaiFENesin [Robafen] 10 ml PO Q6HP PRN PRN Reason: COUGH/COLD Promethazine HCl [Phenergan 25mg tab] 25 mg PO Q6H PRN PRN Reason: Nausea And Vomiting Morphine Sulfate [Roxanol 20mg/mL 1mL oral soln UDC] 5 mg PO Q3H PRN PRN Reason: pain/soa Morphine Sulfate [MS Contin 30mg EXTENDED RELEASE tablet] 30 mg PO HS Lactulose [Lactulose 10gm/15ml Oral Soln] 20 gm PO BID Ondansetron HCl [Ondansetron 4mg Tablet] 4 mg PO TIDP PRN PRN Reason: Nausea Pantoprazole Sodium [Protonix 40mg tablet] 40 mg PO DAILY Pseudoephedrine HCl [Sudogest] 30 mg PO Q6HP PRN PRN Reason: HEADACHE OR CONGESTION Sennosides [Senna Lax] 17.2 mg PO BID Magnesium Oxide 400 mg PO DAILY Discontinued cefUROXime axetil [Ceftin 500mg Tab (GEQ)] 500 mg PO BID - Problem Reconciliation Problems Reviewed?: Yes
== END 2019-02-24 13:00 | disposition hospice, inpatient (51) | DRG 871 ==
LOC: ER 00:37 → 2ND 06:07
PROVIDERS: ADMIT Emergency Medicine; ATTEND Emergency Medicine
DX: R65.21 Severe sepsis with septic shock; Z95.2 Presence of prosthetic heart valve; I45.2 Bifascicular block; Z87.891 Personal history of nicotine dependence; I13.0 Hypertensive heart and chronic kidney disease with heart failure and stage 1 through stage 4 chronic kidney disease, or unspecified chronic kidney disease; D64.9 Anemia, unspecified; J44.9 Chronic obstructive pulmonary disease, unspecified; L89.152 Pressure ulcer of sacral region, stage 2; I50.9 Heart failure, unspecified; E87.6 Hypokalemia; K74.69 Other cirrhosis of liver; A41.89 Other specified sepsis; I45.10 Unspecified right bundle-branch block; N18.9 Chronic kidney disease, unspecified; K72.90 Hepatic failure, unspecified without coma; Z95.1 Presence of aortocoronary bypass graft
CPT/HCPCS: 36415; 70450; 71010; 71045; 74176; 80048; 80053; 81001; 82140; 82150; 82272; 82962; 83605; 83690; 83735; 84132; 84484; 85007; 85025; 85610; 85651; 86140; 87040; 87077; 93005; 96365; 96366; 96367; 99285; G0328; J1335